=== PATIENT | male | born 1950 | race Caucasian/White ===

== ENCOUNTER → 2017-01-30 | Outpatient (CLI) | payer OTHER ==
[~2017-01-30] MED LIST: CALC600T9 PO; CHOL400C7 PO; LEUP30IN3 IM; TRAM-10 PO; ZNTT/150 PO
[2017-01-30 13:15] VITALS: BP 123/80; PULSE 84; TEMP 36.6; O2SAT 95
--- NOTE | 2017-01-30 17:47 | Radiation Oncology Follow-Up ---
Radiation Oncology Follow-Up Date of Visit January 30, 2017. Reason For Visit Six-month follow-up Radiation Completion Date 06/20/16;Hormonal suppression; Diagnosis (1) Prostate cancer Status: Resolved Onset Date: 11/22/2015 Location: both lobes of prostate Histology Subtype: adenocarcinoma Stage: ll Permanent Comment: Rising PSA, pretreatment PSA 5.10 Status post ultrasound-guided biopsies 11/22/2015 revealing adenocarcinoma Codi 3+4 and 4+3 biopsy stage T2c Prostate volume 37.8 Prostate density 0.135 Hormone suppression Status post external beam radiation therapy with IMRT/IGRT completed 06/20/2016 received 8100 cGy Last Edited By: Nubia Clark on Jul 27, 2016 16:51 History of Present Illness Mr. Talley is a 66-year-old male without a family history of prostate cancer. He was being followed by annual screening mammograms up until 2009. He went several years without screening mammograms unbeknownst to him. His most recent screening prostate-specific antigen was taken on 09/28/2015. This was elevated at 5.10. Because of this change in prostate-specific antigen the patient was sent for evaluation to Dr. Qasim Jaramillo. He was seen initially on 10/26. No abnormal nodularity was noted on digital rectal exam. Because of the rise in prostate-specific antigen biopsies were recommended. The ultrasound-guided biopsies were performed on 11/21/2014. Estimated prostate weight was 37.8 g. No hypoechoic lesions were noted. A total of 14 biopsies were taken that included to each from the left and right base, left and right mid gland, left and right apex. One biopsy was taken each from the left and right anterior glands. 2 of 2 biopsies from the left base were positive for adenocarcinoma Codi grade 4+3 involving 10% and 60% of the core samples respectively. No perineural invasion was noted. 2 of 2 biopsies from the right base were positive for adenocarcinoma [place] grade 3+4 with a [place] pattern 4 comprising 10% of the tumor present. The tumor involved 40% and 50% of the 2 core samples respectively. No perineural invasion was noted. 2 of 2 biopsies from the left mid gland were positive for adenocarcinoma Codi grade 3+4 with a Codi pattern 4 comprising less than 5% of the tumor. The tumor involved 75% of each of the core samples respectively with no perineural invasion identified. 2 of 2 biopsies right mid gland were positive for adenocarcinoma Codi grade 3+4. [place] pattern 4 comprises less than 5% of the tumor present. The tumor involved 45% and 50% of the core samples respectively with no perineural invasion identified. 2 of 2 biopsies from the left apex were positive for adenocarcinoma Codi grade 4+3 involving 95% and 70% of the core samples respectively. 2 of 2 biopsies in the right apex were positive for adenocarcinoma [place] grade 3+4. The Codi pattern 4 comprises less than 5% of the tumor present. The tumor involved 40% and less than 5% of the 2 core samples respectively with no perineural invasion identified. The single biopsy from the left and right anterior gland were benign. Therefore total of 12 out of 14 biopsies were positive. This includes 6 biopsies from the left gland and 6 positive biopsies from the right gland. 8 of the biopsies were 3+4 and 4 the biopsies were 4+3. Case: [id number]. Patient underwent an MRI of the pelvis on 12/16/2015 for staging purposes. The prostate measured 4.5 cm transversely with no evidence of pelvic bony metastasis. No evidence of pathologic adenopathy. An increased T1 signal was noted within the left seminal vesicle likely secondary to postbiopsy hemorrhage. The patient return to discuss these findings with Dr. Jaramillo on 12/05/2014. He discussed the pathology and staging. He was kind enough to ask us to see the patient in referral to discuss the radiation treatment options. The patient will return on December 23 to discuss the surgical treatment options with him. It is for this reason the patient is being seen in referral. All options of treatment were reviewed with the patient. He was evaluated for a prostate seed implant. He was given hormone suppression. The arch was too tight on the arch evaluation. He then made the decision to have all external beam therapy. Gold fiducial markers were placed in the return to our office for CT simulation. The radiation therapy was completed 06/20/2016. He received 8100 Interim History He is been doing well over the past 6 months. Denies difficulty with urination. Today he gave an AUA score of 1. He completed and expanded prostate cancer index composite for clinical practice and gave a score of 0 of 12 in urinary incontinence symptoms. He gave a score of 0 of 12 in urinary irritation. He gave a score of 2 of 12 bowel symptoms. He gave a score of 8 of 12 in sexual symptoms. To note he marked that this is not a problem. He gave a score of one of 12 in hormonal vitality symptoms. His total was 11 of 60. He received his last injection of Lupron on 11/07/2016. This was at 30 mg injection. He continues to have hot flashes. Allergies Coded Allergies: No Known Allergies (Unverified , 12/16/15) Home Medications Scheduled Calcium Carbonate-Vitamin D (Calcium + D), 1 TAB PO DAILY Cholecalciferol (Vitamin D 400 Iu), 400 INTER.UNIT PO DAILY Leuprolide Acetate (Lupron Depot), 30 MG IM q4 months Ranitidine (Zantac), 150 MG PO BID Scheduled PRN Tramadol (Ultram), 50 MG PO Q4H PRN for Pain Review of Systems Gastrointestinal: Symptoms: WNL GI Comments: Occass. episode of diarrhea;1-3 BMs each AM;Gummy fibers; Oral: Symptoms: No Problems Respiratory: Symptoms: WNL Urinary: Symptoms: WNL Comments: 1-2 voids/night; Skin: Symptoms: No Problems Physical Exam Vital Signs Date Time Temp Pulse Resp B/P Pulse Ox O2 Delivery O2 Flow Rate FiO2 01/30/17 13:15 36.6 84 24 123/80 95 Pain: Patient Pain Scale: 0 - 10 Initial Pain Intensity: 0.0 Fatigue: None General Appearance: no apparent distress Eyes: normal inspection, EOMI ENT: normal ENT inspection, hearing grossly normal Neck: no adenopathy, thyroid normal Respiratory/Chest: lungs clear, no respiratory distress, no accessory muscle use Cardiovascular: regular rate, rhythm, no gallop, no murmur Abdomen: non tender, soft Extremities: no pedal edema Neurologic/Psychiatric: no motor/sensory deficits, alert, normal mood/affect Skin: warm/dry Laboratory Studies Test 01/30/17 13:53 Prostate Specific Antigen < 0.010 ng/ml (0.000-4.000) Assessment & Plan Plan: PSA was drawn today. Results as above. He'll be notified as to the outcome. We discussed the hormonal suppression. This had been a four-month injection. He'll therefore continue hot flashes until after March 07. The should then steadily getting less over time. Continue regular follow-up with his primary care physician as well as Dr. Jaramillo. An order was given for a PSA to be obtained in 6 months at [facility]. He should be seeing Dr. Jaramillo in approximate 6 months. We asked him to return to our office in 1 year. He may call if he has any questions or concerns in the interim. Total Time In Follow-Up I spent 25 minutes speaking to the patient and performing examination. I spent 15 minutes reviewing information and completing this note. Copy To Bhupinder Jenkins D.O.; Qasim Jaramillo M.D.
== END | disposition home or self-care (01) ==
LOC: C.ONC 12:56
PROVIDERS: ATTEND Physician Assistant Medical
DX: Z08 Encounter for follow-up examination after completed treatment for malignant neoplasm (principal); Z92.3 Personal history of irradiation; Z85.46 Personal history of malignant neoplasm of prostate